=== PATIENT | male | born 1995 | race Caucasian/White ===

== ENCOUNTER 2016-08-12 00:42 | Emergency (ER) | payer BC ==
[~2016-08-12] VITALS: Ht 175.3 cm; Wt 85.0 kg
[2016-08-12] MEDS ORDERED: ABIL5TAB6 PO (00:46)
[2016-08-12] MEDS ORDERED: ZOLO25TA PO (00:46)
[2016-08-12 00:47] VITALS: BP 127/65; PULSE 81; RESP 20; TEMP 98; O2SAT 97
--- NOTE | 2016-08-12 01:07 | PD ---
HPI Chief Complaint: Alcohol/Drug Intoxication Time Seen by Provider: 00:47 Travel History International Travel<30 days: No Contact w/Intl Traveler<30days: No Traveled to known affect area: No History of Present Illness HPI 21-year-old male brought in by EMS for intoxication. Patient is found on the ground at local hotel with intoxicated and vomiting. EMS was called. Patient was brought to ED for evaluation. Patient states that he was his [birth year] and he went out drinking. Patient denies any illicit drug abuse. Patient denies any headache. Patient denies any chest pain or shortness of breath. Patient denies abdominal pain. Patient denies any focal weakness or numbness of extremity. Patient is on Zoloft and Abilify. Patient unable to tell me why he is on the medications. PFSH Past Medical History Medical History: Denies Significant Hx Tetanus Vaccination: Never Vaccinated Influenza Vaccination: No Past Surgical History Surgical History: No Previous Surgery Social History Alcohol Use: Yes Tobacco Use: No Substance Use: No Allergies-Medications (Allergen,Severity, Reaction): Coded Allergies: No Known Allergies (Unverified , 08/12/16) Reported Meds & Prescriptions Reported Meds & Active Scripts Active Reported Abilify (Aripiprazole) 5 Mg Tab 5 Mg PO DAILY Zoloft (Sertraline HCl) 25 Mg Tab 25 Mg PO DAILY Review of Systems General / Constitutional: No: Fever Eyes: No: Visual changes HENT: No: Headaches Cardiovascular: No: Chest Pain or Discomfort Respiratory: No: Shortness of Breath Gastrointestinal: Positive: Nausea, Vomiting, No: Abdominal Pain Genitourinary: No: Dysuria Musculoskeletal: No: Pain Skin: No Rash Neurologic: No: Weakness Psychiatric: No: Depression Endocrine: No: Polydipsia Hematologic/Lymphatic: No: Easy Bruising Physical Exam Narrative GENERAL: Well-nourished, well-developed patient. SKIN: Warm and dry. HEAD: Normocephalic. EYES: No scleral icterus. No injection or drainage. Pupils 4 mm equal reactive. NECK: Supple, trachea midline. No JVD or lymphadenopathy. CARDIOVASCULAR: Regular rate and rhythm without murmurs, gallops, or rubs. RESPIRATORY: Breath sounds equal bilaterally. No accessory muscle use. GASTROINTESTINAL: Abdomen soft, non-tender, nondistended. MUSCULOSKELETAL: No cyanosis, or edema. BACK: Nontender without obvious deformity. No CVA tenderness. Neurologic exam: Patient's intoxicated however answer questions appropriately. Patient moves all extremity well. No obvious focal neurological deficit. Data Data Last Documented VS Vital Signs Date Time Temp Pulse Resp B/P Pulse Ox O2 Delivery O2 Flow Rate FiO2 08/12/16 06:24 94 14 125/64 97 Room Air 08/12/16 00:47 98.0 MDM Medical Decision Making Medical Screen Exam Complete: Yes Emergency Medical Condition: Yes Differential Diagnosis Differential diagnosis including intoxication with substance abuse, gastroenteritis. Narrative Course 21-year-old male was brought in by EMS for intoxication and vomiting. Patient resting comfortably in bed. Patient is not vomiting anymore. Patient will be observed the ED until he see awake and alert and steady on his feet to be safely discharged Diagnosis Primary Impression: Alcohol intoxication Qualified Code: F10.120 - Alcohol intoxication, uncomplicated Patient Instructions: General Instructions Additional Instructions: Follow-up with personal physician as needed. Med/Other Pt SpecificInfo: No Change to Meds Disposition: 01 DISCHARGE HOME Condition: Stable Zhen Emmanuel MD Aug 12, 2016 01:07
[2016-08-12 06:24] VITALS: BP 125/64; PULSE 94; RESP 14; O2SAT 97
== END 2016-08-12 08:57 | disposition home or self-care (01) ==
LOC: NEPE 00:42
DX: F10.120 Alcohol abuse with intoxication, uncomplicated (principal); R11.10 Vomiting, unspecified
CPT/HCPCS: 99283